=== PATIENT | female | born 1935 | race Caucasian/White ===

== ENCOUNTER → 2016-09-07 | Outpatient (CLI) | payer MEDICARE, MEDICAID ==
--- NOTE | 2016-09-07 10:19 | RADIOLOGY REPORT PS360 ---
CT CHEST W/O CONTRAST HISTORY: WEIGHT LOSS, ABD PAIN ORDERING PHYSICIAN: Delmer Batista MD PATIENT AGE: 81 years TECHNIQUE: Helical acquisition obtained without contrast. Axial, sagittal, and coronal reformatted images are generated and reviewed. COMPARISON: [id number] FINDINGS: Coronary artery calcifications are present consistent with atherosclerotic changes. Normal heart size. Medium-sized hiatal hernia with contrast present within the esophagus suggesting reflux. No mediastinal or hilar mass is evident. A prominent collateral vein is present in the internal mammary region on the right. There are centrilobular emphysematous changes with scattered areas of fibrosis. There is evidence of old granulomatous disease. No lobar consolidation or collapse. No suspicious pulmonary nodules apparent. Scattered calcified granulomas are noted. No central bronchial lesion evident. No acute bony anomalies. IMPRESSION: 1. No significant change from 10/04/2013 with no acute finding. 2. Emphysematous changes with scattered areas of pulmonary fibrosis and old granulomatous disease. 3. Hiatal hernia with reflux
--- NOTE | 2016-09-07 10:26 | RADIOLOGY REPORT PS360 ---
CT ABD PELVIS W/O CONTRAST CLINICAL INDICATION: WEIGHT LOSS, ABD PAIN, diarrhea ORDERING PHYSICIAN: Delmer Batista MD PATIENT AGE: 81 years COMPARISON: None TECHNIQUE: Axial images obtained with sagittal and coronal reformats. PROCEDURE: Oral Contrast: None IV Contrast: None . FINDINGS: There is a moderate sized hiatal hernia with contrast in the distal esophagus consistent with reflux. The liver, spleen, adrenal glands, has an unremarkable CT appearance. There is diffuse fatty infiltration and atrophy of the pancreas. There has been a prior cholecystectomy with mild prominence of the common bile duct. No obstructing renal or ureteral calculi or hydronephrosis. There is diffuse colonic diverticulosis involving the entire colon but no evidence of diverticulitis. There is a tiny umbilical hernia containing fat. No evidence of appendicitis. There are mild atheromatous changes of the abdominal aorta with mild fusiform dilatation of 2.5 cm superiorly and 2.2 cm inferiorly There is degenerative disc disease in the lumbar spine with mild wedging of L4 which appears chronic. IMPRESSION: 1. No acute intra-abdominal or pelvic pathology. 2. Hiatal hernia with suspected reflux. 3. Diffuse colonic diverticulosis without diverticulitis. 4. Mild dilatation of the infrarenal abdominal aorta at 2.5 cm
== END ==
LOC: RAD 08-28 09:45 → EDBD 09:38 → RAD 09:45
DX: R63.4 Abnormal weight loss (principal); R10.84 Generalized abdominal pain

== ENCOUNTER → 2017-04-15 | Outpatient (CLI) | payer MEDICARE, MEDICAID ==
--- NOTE | 2017-04-20 18:23 | RADIOLOGY REPORT PS360 ---
DIG MAMM-SCREEN TETE W/CAD CAD Screening ORDERING PHYSICIAN : Delmer Batista MD PATIENT AGE: 80 years GENDER: Female COMPARISON: Previous mammograms: March 2015 and 2015. [facility]. Also [place] mammograms February INDICATION: Routine screening no hormones no complaints difficult to position requiring to technologist. Previous biopsy right breast TECHNIQUE: Standard CC and MLO images were obtained. R2 CAD reviewed. FINDINGS: Low-density breast bilaterally with no dominant mass nor suspicious calcifications in either breast. Moderate arterial vascular calcifications bilateral RIGHT BREAST: No change follow-up one year. LEFT BREAST: Stable small 4.5 mm intramammary node far lateral left breast is been present since studies dating back to least 2012 2012. & Not of concern. Follow-up in one year adequate. No additional notable findings IMPRESSION: Stable bilateral mammogram. No areas of Concern Routine follow-up BI-RADS CATEGORY: 1_Negative RECOMMENDED FOLLOWUP: 12M 12 MONTH FOLLOW-UP (A letter has been sent to the patient regarding results of the study.)
--- NOTE | 2017-04-20 18:23 | RADIOLOGY REPORT PS360 ---
DIG MAMM-SCREEN TETE W/CAD CAD Screening ORDERING PHYSICIAN : Delmer Batista MD PATIENT AGE: 80 years GENDER: Female COMPARISON: Previous mammograms: March 2015 and 2015. [facility]. Also [place] mammograms February INDICATION: Routine screening no hormones no complaints difficult to position requiring to technologist. Previous biopsy right breast TECHNIQUE: Standard CC and MLO images were obtained. R2 CAD reviewed. FINDINGS: Low-density breast bilaterally with no dominant mass nor suspicious calcifications in either breast. Moderate arterial vascular calcifications bilateral RIGHT BREAST: No change follow-up one year. LEFT BREAST: Stable small 4.5 mm intramammary node far lateral left breast is been present since studies dating back to least 2012 2012. & Not of concern. Follow-up in one year adequate. No additional notable findings IMPRESSION: Stable bilateral mammogram. No areas of Concern Routine follow-up BI-RADS CATEGORY: 1_Negative RECOMMENDED FOLLOWUP: 12M 12 MONTH FOLLOW-UP (A letter has been sent to the patient regarding results of the study.)
== END ==
LOC: RAD 09:53
DX: Z12.31 Encounter for screening mammogram for malignant neoplasm of breast (principal)
CPT/HCPCS: G0202